=== PATIENT | female | born 1955 | race Caucasian/White ===

== ENCOUNTER → 2018-04-05 16:16 | Outpatient (CLI) | payer BC | END | disposition home or self-care (01) | LOC: D.CT 16:16 | DX: R91.1 Solitary pulmonary nodule (principal) ==

== ENCOUNTER → 2018-07-21 15:39 | Outpatient (CLI) | payer BC | END | disposition home or self-care (01) | LOC: D.RAD 15:39 | DX: R10.9 Unspecified abdominal pain (principal) ==

== ENCOUNTER → 2018-07-21 16:46 | Outpatient (CLI) | payer BC | END | disposition home or self-care (01) | LOC: D.LABREF 16:46 | DX: R10.9 Unspecified abdominal pain (principal) ==

== ENCOUNTER 2018-09-27 08:00 | Outpatient (CLI) | payer BC | END 2018-09-27 23:59 | disposition home or self-care (01) | LOC: D.MAMMO 08:00 | PROVIDERS: ATTEND Family Medicine | DX: Z12.31 Encounter for screening mammogram for malignant neoplasm of breast (principal) ==

== ENCOUNTER → 2019-09-26 08:41 | Outpatient (CLI) | payer OTHER | END | disposition home or self-care (01) | LOC: D.MRI 08:41 | PROVIDERS: ATTEND Family Medicine | DX: M54.5 Low back pain (principal) ==